=== PATIENT | female | born 1990 | race Two or more races ===

== ENCOUNTER 2025-05-01 05:59 | Inpatient (IN) | payer MEDICAID, SELFPAY ==
[2025-05-01] VITALS (15 sets, daily range): BP systolic 98–120; BP diastolic 50–74; PULSE 62–81; RESP 16–100; TEMP 36.6–37.1; O2SAT 97–100; BMI 28.6
[2025-05-01 06:33] LABS: Basophils # (Auto) 0.0 Thou/mm3 (0.0-0.2); Basophils % (Auto) 0 % (0-2.5); Eosinophils # (Auto) 0.1 Thou/mm3 (0.0-0.5); Eosinophils % (Auto) 1 % (0-10); Hematocrit 34.9 % (36.0-46.0); Hemoglobin 11.9 g/dL (12.0-16.0); Immature Granulocytes Auto 0.08 Thou/mm3 (0.00-0.00); Lymphocytes # (Auto) 2.7 Thou/mm3 (1.0-4.8); Lymphocytes % (Auto) 22 % (10-50); Mean Corpuscular HGB Conc 34.1 g/dl (31.0-37.0); Mean Corpuscular Hemoglobin 29.8 pg (25.0-35.0); Mean Corpuscular Volume 87 fL (80-100); Monocytes # (Auto) 0.7 Thou/mm3 (0.0-0.8); Monocytes % (Auto) 5 % (0-12); Neutrophils # (Auto) 8.7 Thou/mm3 (1.8-7.7); Neutrophils % (Auto) 71 % (37-80); Nucleated Red Blood Cell # 0.00 Thou/mm3 (0.00-0.00); Nucleated Red Blood Cell % 0 /100 WBC (0); Platelet Count 227 Thou/mm3 (140-440); RDW Standard Deviation 44.2 fL (36.4-46.3); Red Blood Count 4.00 Miln/mm3 (4.00-5.20); White Blood Count 12.2 Thou/mm3 (3.6-11.0)
[2025-05-01 06:52] LABS: Amphetamine/Metham Scrn,Ur OB Negative (Negative); Benzoylecgonine Screen, Ur OB Negative (Negative); Opiate Screen,Urine OB Negative (Negative); THC Screen,Urine OB Negative (Negative)
--- NOTE | 2025-05-01 06:55 | PD.LDHP ---
Documentation for date of: 05/01/25 OB Labor/Induct. HPI History of Present Illness Chief complaint: Active labor : 3 Para: 2 Term pregnancies: 2 pregnancies: 0 Living children: 2 History of Abortions: Spontaneous and Elective: 0 History of Vaginal deliveries: 2 History of sections: No History of : No Date of last menstrual period: 08/20/24 JOSY: 04/29/25 Gestational Age (weeks): 40 Gestational Age (days): 2 Gestational age based on last menstrual period: 36 History of present illness: Patient is a 35-year-old -0-0-2 who sees Lalita Hollis who was originally unsure of her last menstrual period she is dated by a 35-week ultrasound with Dr. Kent. Patient thought she might be due 05/27/2025 he moved her due date up to 04/29/2025. She presents with contractions approximately 6:00 in the morning she is 6 cm dilated all care is up-to-date on the chart with [facility]. There was an ultrasound 03/29/[address] Kent's office revealing a vertex presentation and a 6 pound 9 ounce infant. Extrapolating to now, that should be an 8 pound 9 ounce . According to her records, both babies were in the 6 and 6-1/2 pound range. She delivered 1 in [place] and 1 in [place]. History of Present Dating criteria: based on 3rd trimester US only Adequate Care: No (Late to care at 26 weeks) Ultrasounds: normal mid trimester US Obstetrical complications: none Medical complications: none (PMA, normal structural survey with MFM ) Labs Maternal Blood Type: O Pos Labs: Positive: Rubella Titre, Negative: RPR, Hepatitis B, HIV, Chlamydia, Gonorrhea and Group Beta Strep and Unknown: Herpes Type 1, Herpes Type 2 and Covid-19 Past Medical History Surgical History SURGICAL: Negative Section Past Medical History Comments PMH COMMENT: History of vaginal delivery x 2 1 was 6 pounds and 1 was 6-1/2 pounds. Meds Home Medications and Allergies Allergies Allergy/AdvReac Type Severity Reaction Status Date / Time No Known Allergies Allergy Verified 05/01/25 06:02 OB Exam Physical Exam Vital signs: Temp Pulse Resp BP Pulse Ox 98.5 F 68 18 110/74 100 05/01/25 06:11 05/01/25 06:25 05/01/25 06:11 05/01/25 06:25 05/01/25 06:11 Detailed Labor and Delivery Exam Effacement (%): 90 Cervix position: mid station: -1 Consistency: soft Presentation: Vertex Membranes: intact monitor accelerations: 15x15 monitor decelerations: Early senior living variability: Moderate (11-25) Tachysystole: No Contraction intensity: Strong OB Results Labs 05/01/25 06:19 Labs: Short CBC 05/01/25 Range/Units 06:19 WBC 12.2 H (3.6-11.0) Thou/mm3 Hgb 11.9 L (12.0-16.0) g/dL Hct 34.9 L (36.0-46.0) % Plt Count 227 (140-440) Thou/mm3 OB Assessment & Plan Assessment and Plan (1) Supervision of high risk in third trimester: Status: Acute Assessment and plan: Admit patient in active labor. She does not desire epidural. Additional Plan Induction method: none Plan: anticipate NVD
[2025-05-01 07:08] LABS: Syphilis Nonreactive (Nonreactive)
[2025-05-01] MEDS: OXYTOCIN in NS 20 units 20 UNIT/1,000 ML BAG 125 UNIT IV (08:14)
[2025-05-01] MEDS: LIDOCAINE HCL 1% 20 ML VIAL INFL (08:15)
--- NOTE | 2025-05-01 08:15 | CHAP ---
Rapid response call. Prayed outside room as they were attending to the patient.
--- NOTE | 2025-05-01 08:31 | PD.LDDELS ---
Data (Soto) Data Hx Section: No : 3 Term: 2 : 0 Livin Abortions: Spontaneous & Theraputic: 0 Delivery Data (Soto) Labor Data Initiation of labor: Spontaneous Induction/Augmentation Agent: None ROM date: 05/01/25 ROM time: 07:30 Amniotic membrane rupture type: Artificial Amniotic fluid description: Clear and Bloody Delivery Data Onset of labor date: 05/01/25 Onset of labor time: 02:00 Complete dilation date: 05/01/25 Complete dilation time: 07:30 Pember[place] delivery date: 05/01/25 P[place]ton delivery time: 08:12 Placenta delivery date: 05/01/25 Placenta delivery time: 08:14 Stage 1 total time: Labor - Stage 1 Duration 5 hours and 30 minutes Delivered by: Arsen Rebolledo Delivery nurse: robbin Valdez nurse: chris Cable Armorer at delivery: Yes Support person(s) at delivery: none Other staff at delivery: Jenelle chargeback specialist, [employer] nursing students Jp Goldstein and Erica Admas Delivery Method Delivery method: Normal Vaginal Delivery Presentation: Vertex Anesthesia Type Anesthesia Type: Local Placenta Placenta delivery description: Spontaneous Cord blood sent to lab: Yes cord blood collection: Cord Blood Type Episiotomy Episiotomy description: Right Mediolateral Data (Soto) Pemberton Data order: 1 Pemberton's gender: Male Identification band number: [id number] weight (gms): 3775 kg Weight (pounds): 8322 lbs and 7.2 ozs Pemberton length: 57.15 cm 1 minute: 8 5 minutes: 9
[2025-05-01] MEDS: TRANEXAMIC ACID 1,000 MG IVPB 1,000 MG/100 ML BAG 200 MG IV (08:55)
[2025-05-01] MEDS: IBUPROFEN TAB 400 MG TABLET 800 MG PO (08:58)
[2025-05-02] VITALS: BP 105/64; PULSE 71; RESP 17; TEMP 36.7; O2SAT 97
[2025-05-02 04:00] VITALS: BP 111/70; PULSE 67; RESP 18; TEMP 36.8; O2SAT 98
[2025-05-02 05:45] LABS: Basophils # (Auto) 0.0 Thou/mm3 (0.0-0.2); Basophils % (Auto) 0 % (0-2.5); Eosinophils # (Auto) 0.1 Thou/mm3 (0.0-0.5); Eosinophils % (Auto) 1 % (0-10); Hematocrit 30.0 % (36.0-46.0); Hemoglobin 10.2 g/dL (12.0-16.0); Immature Granulocytes Auto 0.11 Thou/mm3 (0.00-0.00); Lymphocytes # (Auto) 2.5 Thou/mm3 (1.0-4.8); Lymphocytes % (Auto) 21 % (10-50); Mean Corpuscular HGB Conc 34.0 g/dl (31.0-37.0); Mean Corpuscular Hemoglobin 30.2 pg (25.0-35.0); Mean Corpuscular Volume 89 fL (80-100); Monocytes # (Auto) 0.7 Thou/mm3 (0.0-0.8); Monocytes % (Auto) 6 % (0-12); Neutrophils # (Auto) 8.8 Thou/mm3 (1.8-7.7); Neutrophils % (Auto) 72 % (37-80); Nucleated Red Blood Cell # 0.00 Thou/mm3 (0.00-0.00); Nucleated Red Blood Cell % 0 /100 WBC (0); Platelet Count 228 Thou/mm3 (140-440); RDW Standard Deviation 46.2 fL (36.4-46.3); Red Blood Count 3.38 Miln/mm3 (4.00-5.20); White Blood Count 12.2 Thou/mm3 (3.6-11.0)
[2025-05-02 08:00] VITALS: BP 103/72; PULSE 65; RESP 20; TEMP 36.9
--- NOTE | 2025-05-02 08:53 | PD.LDPPPRG ---
Subjective Subjective Interval history: He states patient is a 35-year-old -0-0-3 status post vacuum-assisted vaginal delivery by Dr. Rebolledo yesterday morning around 830. Her baby was 2 pounds larger than her biggest baby. Patient feels like she is doing very well today. She denies heavy bleeding. She is voiding. Her pain is controlled with oral pain medication. She is ready to be discharged. She sees Randi at [facility]. She is breast-feeding. She is Slovak-speaking only and the entire interview and physical exam is ducted with a nurse who is fluent in Slovak. Exam Vital Signs Temp Pulse Resp BP Pulse Ox O2 Del Method 98.2 F 67 18 111/70 98 Room Air 05/02/25 04:00 05/02/25 04:00 05/02/25 04:00 05/02/25 04:00 05/02/25 04:00 05/02/25 04:00 Narrative Exam Fundus firm nontender extremities show no significant erythema or edema. Objective Labs 05/02/25 05:10 Labs: Laboratory Results - last 24 hr 05/02/25 05:10 WBC 12.2 H RBC 3.38 L Hgb 10.2 L Hct 30.0 L MCV 89 MCH 30.2 MCHC 34.0 RDW Std Deviation 46.2 Plt Count 228 Neut % (Auto) 72 Lymph % (Auto) 21 Mckinley % (Auto) 6 Eos % (Auto) 1 Baso % (Auto) 0 Neut # (Auto) 8.8 H Lymph # (Auto) 2.5 Mckinley # (Auto) 0.7 Eos # (Auto) 0.1 Baso # (Auto) 0.0 Immature Gran # (Auto) 0.11 H Absolute Nucleated RBC 0.00 Immature Gran % 1 H Nucleated RBC % 0 Assessment & Plan Problem List (1) care following vaginal delivery: Problem details: Patient is doing well day #1 no complaints. Will discharge home today in stable condition. Discharge instructions given. She has an appointment with Lalita at [facility] later in the week. Status: Acute Time Spent With Patient Time: Total time spent is greater than 50% in coordination of care (as documented) at patient's floor/unit and/or counseling patient: Time with patient: less than 15 minutes
--- NOTE | 2025-05-02 08:56 | ESDS_ITS ---
DS: Providers Provider Date of admission: 05/01/25 06:12 Primary care physician: Physician No Primary/Family Admitting Provider: Arsen Rebolledo MD Attending Provider on Admission: Arsen Rebolledo MD Consults: 05/01/25 09:15 Referral Routine Comment: Attending Provider on DC: Kizzy Mazariegos MD ([facility]) Discharging Provider: Kizzy Mazariegos MD ([facility]) Anticipated date of discharge: 05/02/25 DS: Diagnosis Discharge Diagnosis (1) care following vaginal delivery: Status: Acute Assessment & Plan: Discharge instructions given including no intercourse x 6 weeks. Follow-up with [facility] for care. Problem List Completed Was Problem List Reviewed/Reconciled?: Yes Summary/Hosp Course Brief History: Patient is a 35-year-old -0-0-2 who sees Lalita Sahfer who was originally unsure of her last menstrual period she is dated by a 35-week ultrasound [address] Dr. Kent. Patient thought she might be due 05/27/2025 he moved her due date up to 04/29/2025. She presents with contractions approximately 6:00 in the morning she is 6 cm dilated all care is up-to-date on the chart with [facility]. There was an ultrasound 03/29/[address] Kent's office revealing a vertex presentation and a 6 pound 9 ounce infant. Extrapolating to now, that should be an 8 pound 9 ounce . According to her records, both babies were in the 6 and 6-1/2 pound range. She delivered one in [place] and 1one in [place]. Please see history and physical for further details. Hospital course: Patient underwent a vacuum-assisted vaginal delivery by Dr. Hatfield approximately 8:30 in the morning on 05/01/2025. She had an episiotomy. Please see delivery notes for further details. day #1 patient was ambulating voiding passing flatus tolerating a general diet. Her bleeding was minimal. Her pain was controlled with oral ibuprofen. Is breast-feeding. She was discharged home day #1 in stable condition. Peripartum Data Delivery Method: Normal Vaginal Delivery Episiotomy Description: Right Mediolateral Laceration Description: see Delivery Summary complications: none Status at Discharge Cognitive/behavioral status at discharge: Patient is alert and orient x 3 in no apparent distress Functional status at discharge: independent ambulation Overall status at discharge: patient is progressing back to baseline Time Spent with Patient Time attestation: Total time spent providing and/or coordinating discharge services: Specific discharge activities: Pelvic rest x 6 weeks. No intercourse tampons douching bathtubs or swimming x 6 weeks. Call for heavy vaginal bleeding fevers or severe depression. Follow-up with [facility] for your care visits. Exam Vital Signs Temp Pulse Resp BP Pulse Ox O2 Del Method 98.2 F 67 18 111/70 98 Room Air 05/02/25 04:00 05/02/25 04:00 05/02/25 04:00 05/02/25 04:00 05/02/25 04:00 05/02/25 04:00 Narrative Exam Fundus firm nontender extremities show no significant edema or erythema. Discharge Plan Plan Patient Disposition: HOME (Self Care) Disposition Comment: Stable Prescriptions/Referrals Prescriptions/Med Rec: New ibuprofen 400 mg Tablet 800 mg PO Q8HR PRN (Reason: Pain Scale 4-6 (Moderate) Qty: 60 0RF docusate sodium 100 mg Capsule 100 mg PO QDAY Qty: 60 0RF Referrals: No Primary/Family,Physician [Primary Care Provider] Patient/Caregiver Discharge Instructions Discharge Activity: activity as tolerated Other Discharge Activity Instructions:: Pelvic rest x 6 weeks Other Discharge Diet Instructions: General Diet as tolerated Education Materials: After Delivery [facility] Concerns Print Language: Serbian Activity Restrictions/Additional Instructions: Pelvic rest x 6 weeks. Call with heavy bleeding depression or fevers . Stand Alone Forms: [facility]ina Award Info., Patient Portal Info Letter Discharge Order Discharge Orders: Discharge (Routine); Ordered 05/02/25 Ordered By: Kizzy Mazariegos ([facility]) Planned Discharge Date 05/02/25
[2025-05-02] MEDS: DOCUSATE SOD 100 MG CAPSULE PO (09:07)
[2025-05-02 13:00] VITALS: BP 104/63; PULSE 74; RESP 20; TEMP 36.7
[2025-05-02 17:41] VITALS: BP 103/65; PULSE 69; RESP 20; TEMP 36.7; O2SAT 98
== END 2025-05-02 19:06 | disposition home or self-care (01) | DRG 560 ==
LOC: S4SX 08:19 → S4NX 11:01
PROVIDERS: Obstetrics & Gynecology; Admitting Provider Obstetrics & Gynecology; Visit Provider Obstetrics & Gynecology
DX: O48.0 Post-term pregnancy (principal); O76 Abnormality in fetal heart rate and rhythm complicating labor and delivery; Z3A.40 40 weeks gestation of pregnancy; Z37.0 Single live birth
CPT/HCPCS: 36415; 80307; 85025; 86780; 86850; 86900; 86901; J2590; J3490; A9270